=== PATIENT | female | born 1970 | race Caucasian/White ===

== ENCOUNTER → 2016-07-31 | Outpatient (CLI) | payer BC | LOC: EXRD 11:31 | DX: J40 Bronchitis, not specified as acute or chronic (principal); J98.4 Other disorders of lung | CPT/HCPCS: 71020 ==

== ENCOUNTER → 2016-11-13 | Outpatient (CLI) | payer BC | LOC: HEART 5 10-26 09:30 | DX: R00.2 Palpitations (principal); R42 Dizziness and giddiness; I10 Essential (primary) hypertension; I07.1 Rheumatic tricuspid insufficiency | CPT/HCPCS: 93306 ==